=== PATIENT | male | born 2000 | race Caucasian/White ===

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

== ENCOUNTER 2021-04-22 11:11 | Emergency (ER) | payer MEDICAID, SELFPAY ==
[2021-04-22 11:12] VITALS: BP 127/81; PULSE 100; RESP 18; TEMP 36.2; O2SAT 96; BMI 25.5
--- NOTE | 2021-04-22 11:25 | EX.ED.DYSGE1 ---
HPI History of Present Illness Chief Complaint: Wound Check Narrative Narrative: Patient presents with drainage from his umbilicus. He states he has had this for the last week. He denies any systemic signs or symptoms. He states he is showering twice a day but after he gets home from work he is having more brown drainage. He states he does not have any pain and denies any injury. He has no known history of MRSA. PFSH PFSH Home Medications cephalexin 500 mg PO Q6 #40 capsule 04/22/21 [Rx Last Taken Unknown] Allergy/AdvReac Type Severity Reaction Status Date / Time No Known Allergies Allergy Verified 04/22/21 11:12 Social History Smoking Status: Current every day smoker ROS ROS ED Constitutional Constitutional ED: Denies chills, fever(s) or subjective Eyes Eyes: Denies blurry vision or change in vision ENT ENT ED: Denies rhinorrhea or sore throat Cardiovascular Cardiovascular: Denies chest pain or palpitations Respiratory/Chest Respiratory/Chest: Denies cough or dyspnea Gastrointestinal Gastrointestinal: Denies abdominal pain, nausea or vomiting Genitourinary Genitourinary ED: Denies dysuria Musculoskeletal Musculoskeletal: Denies arthralgias or myalgias Integumentary Reports other Details: Drainage from umbilicus Neurologic Neurologic: Denies headache(s) or paresthesias EXAM Physical Exam Const Vital Signs: 04/22/21 11:12 Temperature 97.2 F L Temperature Source Temporal Pulse Rate 100 Respiratory Rate 18 Blood Pressure 127/81 H Blood Pressure Mean 96 Pulse Ox 96 Oxygen Delivery Method Room Air Positive well nourished General Appearance ED: NAD HEENT Reports moist mucous membranes Negative for trauma Eyes PERRL and EOMs intact bilaterally Resp normal respiratory effort and clear to auscultation bilaterally Cardio regular rate and regular rhythm GI GI Narrative: No abdominal pain on examination. Umbilicus does not have any active drainage. None was able to be expressed. Neuro oriented x3 Sensorium / Orientation: alert Psych mental status grossly normal Skin Skin Narrative: As described above MDM MDM MDM Narrative Medical decision making narrative: Patient presents with drainage from his umbilicus. Unable to express any and there is no active drainage currently. There appears to be no abscess or cellulitis. Patient is concerned he has an infection. He does not have any systemic signs or symptoms. His vital signs are stable. Wound care instructions were discussed. Patient wishes to placed on antibiotics. I will start him on Keflex. Patient stable discharge this time. Impression: 1. Umbilical drainage Discharge Plan Triage Chief Complaint: Wound Check ED Provider: Vivek Huang Dx/Rx/DC Orders Instructions: ED Wound Check (Infection) Prescriptions: New cephalexin 500 mg capsule 500 mg PO Q6 Qty: 40 RF: 0 Primary Care Provider: Care Physician,No Primary Referrals: Taran Mackey MD [NON-STAFF] - Disposition Disposition: Home, Self Care
[2021-04-22] MEDS: Cephalexin 250 MG Capsule 500 MG PO (11:31)
== END 2021-04-22 11:44 | disposition home or self-care (01) ==
LOC: ED 11:33
PROVIDERS: Emergency Provider Student in an Organized Health Care Education/Training Program
DX: Z48.01 Encounter for change or removal of surgical wound dressing (principal); F17.200 Nicotine dependence, unspecified, uncomplicated
CPT/HCPCS: 99282

== ENCOUNTER 2023-01-04 17:13 | Emergency (ER) | payer MEDICAID, SELFPAY ==
[2023-01-04 17:15] VITALS: BP 151/92; PULSE 114; RESP 18; TEMP 36.6; O2SAT 98; BMI 25.9
--- NOTE | 2023-01-04 18:12 | CT_ITS ---
INDICATION: Trauma, neck pain EXAMINATION: CT CERVICAL SPINE - CT Spine Cervical W/O Contrast Injection TECHNIQUE: Helically acquired images were obtained of the cervical spine. 2D reformatted images were reviewed. A radiation dose optimization technique was used for this scan. IV Contrast dosage and agent: None. COMPARISON: None. FINDINGS: VERTEBRAE: No fracture or traumatic subluxation. No discrete lytic or blastic abnormality. Normal alignment. Normal craniocervical junction and cervicothoracic junction. DISCS and SPINAL CANAL: Disc heights are preserved. No critical stenosis. NECK SOFT TISSUES: No prevertebral soft tissue swelling. There is no cervical adenopathy. LUNG APICES: Clear. CT/Spine Cervical without Contras IMPRESSION: No evidence of acute cervical spinal fracture or spondylolisthesis. Electronically Signed: Jorge Schroeder MD at 18:51 EDT ,
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
[2023-01-04 19:59] VITALS: RESP 16
== END 2023-01-04 20:00 | disposition home or self-care (01) ==
PROVIDERS: Emergency Provider Emergency Medicine; Visit Provider Emergency Medicine
DX: S16.1XXA Strain of muscle, fascia and tendon at neck level, initial encounter (principal); M75.22 Bicipital tendinitis, left shoulder; F17.210 Nicotine dependence, cigarettes, uncomplicated; V89.2XXA Person injured in unspecified motor-vehicle accident, traffic, initial encounter
CPT/HCPCS: 72125; 99283

== ENCOUNTER 2024-06-24 05:46 | Emergency (ER) | payer SELFPAY ==
[2024-06-24 05:47] VITALS: BP 150/95; PULSE 63; RESP 18; TEMP 36.8; O2SAT 98; BMI 25.8
--- NOTE | 2024-06-24 05:57 | EX.ED.DYSGE1 ---
HPI History of Present Illness Chief Complaint: General Illness Detail of Chief Complaint: Not feeling well since yesterday Informant: patient Narrative Narrative: Patient presents to the emergency department complaint of not feeling well since yesterday. Patient states he woke up in the morning and he had a headache. He has tried Tylenol but headache not going away. Headache worse when up and walking. He is got a cough but trying to avoid coughing. He has had some chills. Denies sick contacts. Denies falls or head injuries. Has had some nausea. No diarrhea. He has no medical history. [facility] Medical History (Updated 06/24/24 @ 07:[address] Sanchez Markham, DO) ADHD Home Medications ?Medication ?Instructions ?Recorded ?Last Taken ?Type NK 06/24/24 Unknown History Allergy/AdvReac Type Severity Reaction Status Date / Time No Known Allergies Allergy Verified 06/24/24 05:51 Social History Smoking Status: Current every day smoker tobacco type: e-cigarettes ROS ROS ED Review of Systems ROS Unobtainable: other Constitutional Constitutional ED: Reports chills and lethargy; Denies fever(s), sweats or weight loss Eyes Eyes: Denies blurry vision, change in vision or diplopia ENT ENT ED: Denies rhinorrhea or sore throat Cardiovascular Cardiovascular: Denies chest pain, orthopnea or racing heartbeat Respiratory/Chest Respiratory/Chest: Reports cough; Denies dyspnea, dyspnea on exertion, orthopnea or sputum Gastrointestinal Gastrointestinal: Denies abdominal pain, diarrhea, nausea or vomiting Genitourinary Genitourinary ED: Denies dysuria, hematuria or urinary frequency Musculoskeletal Musculoskeletal: Denies arthralgias, back pain, myalgias or neck pain Integumentary Denies abscess, Abrasions or rash Neurologic Neurologic: Reports headache(s); Denies weakness Psychiatric Psychiatric: Denies anxiety, depression or suicidal thoughts Endocrine Endocrinology: Denies polydipsia, polyphagia or polyuria Hematologic/Lymphatic Hematologic/Lymphatic: Denies easy bleeding, easy bruising or lymphadenopathy Allergic/Immunologic Allergic/Immunologic ED: Denies mouth swelling, tongue swelling or urticaria EXAM Physical Exam Const Vital Signs: 06/24/24 05:47 06/24/24 05:53 Temperature 98.3 F Temperature Source Oral Pulse Rate 63 Respiratory Rate 18 Respiratory Effort Normal Respiratory Pattern Normal Blood Pressure 150/95 H Blood Pressure Mean 113 Pulse Ox 98 Positive well nourished and well developed General Appearance ED: well developed and NAD HEENT Reports TM's clear and moist mucous membranes normocephalic and atraumatic; Negative for trauma or tenderness Tympanic Membrane ED: Yes TM's clear Eyes PERRL and EOMs intact bilaterally General Eye ED: Negative for pale conjunctiva or scleral icterus Neck no lymphadenopathy, supple and no JVD General: Negative for tenderness Chest Wall inspection of chest normal and palpation of chest normal Chest: Negative for tenderness Resp normal respiratory effort and clear to auscultation bilaterally Effort and Inspection: Negative for respiratory distress or pain with movement Auscultation: Negative for rhonchi, wheezes or diminished lung sounds Cardio regular rate, regular rhythm, S1 normal heart sound, S2 normal heart sound and no murmurs Peripheral Pulses: pulses 2+ throughout GI normal to inspection, nondistended, normoactive bowel sounds, soft to palpation, non-tender, non-distended and no masses Back/Spine no CVA tenderness and no thoracic nor lumbar tenderness Extremity normal to inspection General Extremety ED: Negative for edema General Extremity: Negative for edema Neuro oriented x3, CN's II-XII intact bilaterally, no sensory deficits noted and gait normal Neuro Narrative: Finger-nose and heel prince testing within normal limits, negative Romberg, negative pronator drift, fundi benign Sensorium / Orientation: awake, alert, oriented to person, oriented to place and oriented to time Motor Exam: strength 5/5 throughout and strength abnormal Psych mental status grossly normal Skin no rashes or lesions noted and no wounds MDM MDM MDM Narrative Medical decision making narrative: Patient presents with gradual headache. He has had some chills and cough. No history of migraines. He has had some nausea but denies photophobia. Clinically I suspect likely viral syndrome versus migraine. Patient will be tested for COVID flu and RSV. Had an IV line established and was given a liter Mustain fluid bolus as well as Reglan Benadryl and Toradol and his headache improved from an 8 out of 10 down to a 3 out of 10. Care of patient turned over to morning physician awaiting results of COVID flu and RSV testing. I feel he can be discharged to home. Discharge Plan Triage Chief Complaint: General Illness ED Provider: Ungur,Remus Dx/Rx/DC Orders Clinical Impression: Headache, Viral URI Instructions: ED Viral Syndrome (Adult), ED URI, Viral, No Abx (Adult) Prescriptions: No Action NK Primary Care Provider: Care Physician,No Primary Referrals: John Smion MD [Med Staff - R[facility] Plastic Surgery] - 3-5 Days Care Physician,No Primary [Primary Care Provider] - Print Language: Nepali Disposition Disposition: Home, Self Care
[2024-06-24] MEDS: Metoclopramide 10 MG/2 ML Vial IV (06:30)
[2024-06-24] MEDS: DiphenhydrAMINE 50 MG/ML Syringe 25 MG IV (06:30)
[2024-06-24] MEDS: Ketorolac 30 MG/ML Syringe IV (06:30)
[2024-06-24] MEDS: 0.9% Normal Saline (1000mL) 1,000 ML 1000 ML IV (06:30)
[2024-06-24 07:33] VITALS: BP 128/71; RESP 16
[2024-06-24 08:02] VITALS: BP 124/73; PULSE 80; RESP 16; TEMP 36.8; O2SAT 96
== END 2024-06-24 08:03 | disposition home or self-care (01) ==
PROVIDERS: Emergency Provider Emergency Medicine; Visit Provider Emergency Medicine
DX: J06.9 Acute upper respiratory infection, unspecified (principal); R11.0 Nausea; R51.9 Headache, unspecified; F17.290 Nicotine dependence, other tobacco product, uncomplicated
CPT/HCPCS: 87631; 96361; 96374; 96375; 99283; J7030; A4216

== ENCOUNTER 2025-02-04 10:01 | Emergency (ER) | payer BC, SELFPAY ==
[2025-02-04 10:01] VITALS: BP 133/88; PULSE 92; RESP 16; TEMP 36.7; O2SAT 99; BMI 24.7
--- NOTE | 2025-02-04 10:08 | EX.ED.UPPERE ---
HPI History of Present Illness HPI Narrative: Patient presents with foreign body to his right ring finger that occurred today. Patient was fishing this morning and got a fishhook stuck in the right ring finger. Patient is right-hand dominant. Patient describes his pain as aching. Patient states he attempted to remove the fishhook without success. Patient admits to some tingling into the tip of his finger. Patient denies any weakness. Patient is unsure of his last tetanus. Chief Complaint: Foreign Body Informant: patient Onset/Context/Timing Onset: Today Context: Sudden Onset Timing: Continuous Quality of Pain: Aching Location: Right ring finger Associated Symptoms Associated Symptoms: Positive for Parasthesia; Negative for Weakness or Loss of Funtion Narrative Tetanus Immunization: Unknown [facility] Medical History ADHD Home Medications ?Medication ?Instructions ?Recorded ?Last Taken ?Type cephalexin 500 mg capsule 500 mg PO Q6 #40 CAPSULES 02/04/25 Unknown Rx Allergy/AdvReac Type Severity Reaction Status Date / Time No Known Allergies Allergy Verified 02/04/25 10:01 Social History Smoking Status: Current every day smoker tobacco type: e-cigarettes ROS ROS ED Constitutional Constitutional ED: Denies chills or fever(s) Eyes Eyes: Denies blurry vision or change in vision ENT ENT ED: Denies rhinorrhea or sore throat Cardiovascular Cardiovascular: Denies chest pain or palpitations Respiratory/Chest Respiratory/Chest: Denies cough or dyspnea Gastrointestinal Gastrointestinal: Denies nausea or vomiting Genitourinary Genitourinary ED: Denies dysuria or hematuria Musculoskeletal Musculoskeletal: Denies back pain or neck pain Integumentary Denies abscess or rash Neurologic Neurologic: Denies headache(s) or weakness Allergic/Immunologic Allergic/Immunologic ED: Denies mouth swelling or urticaria EXAM Physical Exam Const Vital Signs: 02/04/25 10:01 Temperature 98.1 F Temperature Source Oral Pulse Rate 92 Respiratory Rate 16 Blood Pressure 133/88 H Blood Pressure Mean 103 Pulse Ox 99 Oxygen Delivery Method Room Air Positive well nourished and well developed General Appearance ED: well developed and NAD HEENT Reports moist mucous membranes Neck full ROM and supple Extremity Extremity Narrative: There is a foreign body noted in the pad of the distal phalanx of the right ring finger. There is some dried blood around the puncture wound. There is no active bleeding noted. Sensation intact with light touch in all detail capillary refill is less than 2 seconds in all digits. There is full range of motion of the MP, PIP, DIP joints. Neuro oriented x3, CN's II-XII intact bilaterally, moves all extremities, no focal motor deficits and no sensory deficits noted Sensorium / Orientation: alert Motor Exam: strength 5/5 throughout Psych mental status grossly normal MDM MDM MDM Narrative Medical decision making narrative: Nicotine cessation was discussed. Patient given a tetanus booster. The right ring finger with 1% lidocaine via digital block. After adequate anesthesia, the portion of the fishhook was pushed through the skin. The fishhook was removed intact. Patient tolerated the procedure well. There is no bleeding noted. Bacitracin dressing was applied. Patient was given a dose of Keflex here. Patient is given a prescription for Keflex. Patient was instructed to keep the wound clean and dry. Patient was instructed to follow-up with a primary care physician in 5 to 7 days. Patient understood and was agreeable with the plan. All questions were answered. Discharge Plan Triage Chief Complaint: Foreign Body ED Provider: John Oneal Dx/Rx/DC Orders Clinical Impression: Foreign body in skin of right ring finger, Nicotine vapor product user Instructions: ED Foreign Body, Soft Tissue (Removed) Prescriptions: New cephalexin 500 mg capsule 500 mg PO Q6 Qty: 40 0RF Primary Care Provider: Care Physician,No Primary Referrals: Edyta Ingram MD [Med Staff - [employer]] - 5-7 Days Care Physician,No Primary [Primary Care Provider] - Print Language: Gibraltarian Disposition Disposition: Home, Self Care
[2025-02-04] MEDS: Lidocaine 1% (20 ml mdv) 20 ML Vial INFILT (10:17)
[2025-02-04] MEDS: Diphth,Pertuss(Acell),Tet Vac 0.5 ML Vial IM (10:18)
[2025-02-04 10:47] VITALS: BP 133/88; PULSE 92; RESP 16; TEMP 36.7; O2SAT 99
[2025-02-04] MEDS: Cephalexin 500 MG Capsule PO (10:53)
== END 2025-02-04 10:54 | disposition home or self-care (01) ==
LOC: ED 10:50
PROVIDERS: Emergency Provider Emergency Medicine; Visit Provider Emergency Medicine
DX: S60.454A Superficial foreign body of right ring finger, initial encounter (principal); F17.290 Nicotine dependence, other tobacco product, uncomplicated; Z23 Encounter for immunization; W26.8XXA Contact with other sharp object(s), not elsewhere classified, initial encounter
CPT/HCPCS: 90471; 90715; 99282